=== PATIENT | female | born 1975 | race Caucasian/White ===

== ENCOUNTER 2024-07-26 00:11 | Emergency (ER) | payer BC ==
[~2024-07-26] VITALS: Ht 160 cm; Wt 59.0 kg
[~2024-07-26 00:11] MED LIST: CIPROFLOXACN500 MG PO; POLYTRIM OS; ULTRAM50 M1 PO; ZOFRAN ODT4 MG PO
[2024-07-26] MEDS ORDERED: TRAMADOL HYDROC50 M1 PO (03:04)
[2024-07-26 03:36] VITALS: BP 131/93
== END 2024-07-26 03:36 | disposition home or self-care (01) | DRG 563 ==
LOC: ED 00:11
DX: S92.012A Displaced fracture of body of left calcaneus, initial encounter for closed fracture (principal); F17.200 Nicotine dependence, unspecified, uncomplicated; X50.0XXA Overexertion from strenuous movement or load, initial encounter; Y92.009 Unspecified place in unspecified non-institutional (private) residence as the place of occurrence of the external cause

== ENCOUNTER 2025-01-13 07:39 | Day surgery (SDC) | payer BC ==
[~2025-01-13] VITALS: Ht 160 cm; Wt 59.9 kg
[~2025-01-13 07:39] MED LIST changes: +CALCIUM 1200 PO; +ESTRADIOL1 MG PO; +L-LYSINE500 M2 PO; +MEDROXYPROGESTER5 MG PO; +TRAMADOL HYDROC50 M1 PO; +VITAMIN D PO; +[UNRECOGNIZED DRUG - OTHER] PO
[2025-01-13] MEDS ORDERED: FAMOTIDINE 10MG/ML 2ML SDV IV ONE (07:48)
[2025-01-13] MEDS ORDERED: LACTATED RINGER'S 1,000 ML IV ONE (07:48)
[2025-01-13 09:25] VITALS: BP 119/74
[2025-01-13] MEDS ORDERED: LIDOCAINE HCL 2% 2ML SDV IV ONE (09:52)
[2025-01-13] MEDS ORDERED: PROPOFOL 200 MG/20 ML VIAL IV ONE (09:52)
[2025-01-13] MEDS ORDERED: GLYCOPYRROLATE 0.2 MG/ML IV ONE (09:52)
== END 2025-01-13 09:39 | disposition home or self-care (01) | DRG 951 ==
LOC: ENDO 07:39
PROVIDERS: ATTEND Surgery
PROC: 0DBN8ZX Excision of Sigmoid Colon, Via Natural or Artificial Opening Endoscopic, Diagnostic (ICD-10-PCS; principal; 2025-01-13)
DX: Z12.11 Encounter for screening for malignant neoplasm of colon (principal); D12.5 Benign neoplasm of sigmoid colon; K64.8 Other hemorrhoids; I10 Essential (primary) hypertension; Z01.818 Encounter for other preprocedural examination; Z11.52 Encounter for screening for COVID-19; N80.9 Endometriosis, unspecified; Z98.890 Other specified postprocedural states; F17.210 Nicotine dependence, cigarettes, uncomplicated
CPT/HCPCS: J1596